=== PATIENT | male | born 2005 | race Caucasian/White ===

== ENCOUNTER 2025-04-29 20:48 | Emergency (ER) | payer BC, SELFPAY ==
[2025-04-29 20:52] VITALS: BP 135/79; PULSE 83; RESP 16; TEMP 36.8; O2SAT 100
--- NOTE | 2025-04-29 21:42 | ED.WOUNDLAC ---
HPI - Wound/Laceration General Chief Complaint: Wound/Laceration Stated Complaint: laceration Time Seen by Provider: 04/29/25 21:18 Source: patient Mode of arrival: ambulatory Limitations: no limitations History of Present Illness HPI narrative: This is a 19-year-old male that presents to the emergency department for a laceration of the left hand. Reports he accidentally avulsed a piece of skin with a lens grinder and polisher. Unsure of last tetanus vaccination. Denies decreased range of motion. Related Data Allergies Allergy/AdvReac Type Severity Reaction Status Date / Time Penicillins Allergy Rash Verified 04/29/25 21:02 Review of Systems Review of Systems: All systems reviewed & are unremarkable except as noted in HPI and below Exam Narrative: GENERAL: Well-appearing, well-nourished, and in no acute distress. HEAD: Normocephalic, atraumatic. EYES: EOMI. EXTREMITIES: Normal range of motion. No edema. 1cm skin avulsion at the base of the left thumb SKIN: Warm, dry, no rash. NEURO: No focal deficits. Alert and oriented x3. PSYCH: Normal mood and affect Course Vital Signs Vital signs: Vital Signs Temperature 98.2 F 04/29/25 20:52 Pulse Rate 83 04/29/25 20:52 Respiratory Rate 16 04/29/25 20:52 Blood Pressure 135/79 04/29/25 20:52 Pulse Oximetry 100 04/29/25 20:52 Oxygen Delivery Room Air 04/29/25 20:52 Temperature 98.2 F 04/29/25 20:52 Pulse Rate 83 04/29/25 20:52 Respiratory Rate 16 04/29/25 20:52 Blood Pressure 135/79 04/29/25 20:52 Pulse Oximetry 100 04/29/25 20:52 Oxygen Delivery Room Air 04/29/25 20:52 Procedures Laceration Laceration 1: Date: 04/29/25 Time: 21:49 Site: hand Side (If applicable): left Size (cm): 1 Description: linear Depth: simple, single layer Pre-repair: irrigated ====== Skin Level ====== ====== Subcutaneous Layer ====== ====== Muscle Layer ====== ====== Tendon Layer ====== Dressing: Wound irrigated and covered with antibiotic ointment, Telfa, Kerlix, Coban MDM - Wound/Laceration MDM Narrative Medical decision making narrative: Patient presents the emergency department for a small skin avulsion. Bleeding under control. Updated on tetanus vaccination. Wound irrigated and bandaged. Educated on further wound care. He was given warnings to return to the ER Differential Diagnosis Differential diagnosis: Likely laceration, abrasion and avulsion of skin Critical Care Time Critical Care Time Critical Care Time: No Discharge Plan Discharge Clinical Impression: Avulsion of skin Patient Disposition: Home Condition: Stable Instructions: Antibiotic Form, Skin Avulsion (ED) Additional Instructions: Return to the emergency department if you experience fever, redness or swelling of your wound, abnormal drainage from your wound, or any other symptoms that are concerning to you. Apply antibiotic ointment daily. Do not soak the wound. Clean with mild soap and water daily Follow-up with your primary care doctor for wound check Patient Language: German Follow-up/Referrals: UNKNOWN,DOCTOR [Primary Care Provider]
[2025-04-29] MEDS: TETANUS,DIPHTHERIA,AC PERTUSSIS ADULT (0.5 ML) BOOSTRIX IM (21:49)
== END 2025-04-29 22:02 | disposition home or self-care (01) ==
LOC: ANHED 21:51
PROVIDERS: Emergency Provider Physician Assistant
DX: S61.412A Laceration without foreign body of left hand, initial encounter (principal); Z23 Encounter for immunization; W29.8XXA Contact with other powered hand tools and household machinery, initial encounter
CPT/HCPCS: 90471; 90715; 99282